=== PATIENT | male | born 1945 | race Caucasian/White ===

== ENCOUNTER 2017-11-29 11:43 | Day surgery (SDC) | payer MEDICARE ==
[~2017-11-29] VITALS: Ht 177.8 cm; Wt 111.1 kg
[~2017-11-29 11:43] MED LIST: ASPIRIN EC325 MG PO; CARVEDILOL6.25 MG PO; CRESTOR10 MG PO; DOCUSATE CAL240 MG PO; EQL ACETAMINOP325 MG PO; FIBER ADULT GUM1 CHW PO; LASIX40 MG PO; LISINOPRIL20 MG PO; MULTI VIT PO; PRESERVISION ARED1 PO; TAMSULOSIN HCL0.4 MG PO; [UNRECOGNIZED DRUG - OTHER] PO
[2017-11-29 14:44] VITALS: BP 114/58
== END 2017-11-29 14:42 | disposition home or self-care (01) ==
LOC: ENDO 11:43
PROVIDERS: ATTEND Internal Medicine Gastroenterology
PROC: 0DJD8ZZ Inspection of Lower Intestinal Tract, Via Natural or Artificial Opening Endoscopic (ICD-10-PCS; principal; 2017-11-29)
DX: K57.30 Diverticulosis of large intestine without perforation or abscess without bleeding (principal); K64.4 Residual hemorrhoidal skin tags; K64.8 Other hemorrhoids; I10 Essential (primary) hypertension; I25.10 Atherosclerotic heart disease of native coronary artery without angina pectoris; E78.00 Pure hypercholesterolemia, unspecified; Z86.010 Personal history of colon polyps; Z95.5 Presence of coronary angioplasty implant and graft; Z95.1 Presence of aortocoronary bypass graft